=== PATIENT | male | born 1975 | race Caucasian/White ===

== ENCOUNTER 2024-12-03 11:47 | Emergency (ER) | payer BC, SELFPAY ==
[2024-12-03 11:54] VITALS: BP 111/56
[2024-12-03 11:55] VITALS: BP 111/56
[2024-12-03 12:00] VITALS: BP 111/56
--- NOTE | 2024-12-03 12:15 | ED.GENMED ---
History of Present Illness
General
Chief Complaint: Fainting Sensation
Source: patient and spouse
Time Seen by Provider: 12/03/24 12:05
History of Present Illness
History of Present Illness:
The patient is a 24-year-old male who presented with symptoms of dizziness and vertigo. He reports that he was feeling well upon waking up in the morning but experienced a sudden onset of lightheadedness and a spinning sensation after coming inside
from being outdoors. He described the sensation as 'the room was spinning.' The patient also experienced nausea, diaphoresis, and cold sweats. He attempted to manage the symptoms by drinking water and lying down but noted that lying on his back
aggravated the sensation, prompting him to turn onto his side in anticipation of vomiting.
The patient reported that head movement exacerbates the spinning sensation. He denies any previous medical problems but mentioned having a history of migraines for which he takes medication as needed. No history of medication use or allergies was
reported. He underwent nasal reconstruction surgery two years ago.
The patient denies any triggering activity or movement that might have precipitated the current episode of dizziness, although similar episodes have not been experienced before.
Phy Exam
Physical Exam
Physical Exam:
General: Awake, Alert, Oriented X3. Patient appears uncomfortable nausea dizziness
Vitals: unremarkable
Head: Atraumatic
Eyes: Pupils equal, EOMI, significant horizontal nystagmus with leftward gaze
Throat: Airway intact, no exudates
Neck: Trachea midline
Lungs: Clear and equal b/l
Heart: Regular rate, no murmurs
Abd: Soft, Nontender, No pulsatile mass
Neuro: Cranial nerves intact, muscle strength equal bilaterally
Skin: Warm, dry, no rash
Extremities: pulses equal b/l, no edema
Course
Orders/Labs/Results
Orders:
Orders
12/03/24 11:48
EKG [Electrocardiogram (*1)] Urgent
Reason for Study: Chest Pain
12/03/24 11:49
EKG- Treatment ONCE
12/03/24 12:08
Complete Blood Count/With Diff Urgent
Comprehensive Metabolic Panel Urgent
12/03/24 12:14
Ondansetron Injectable [Zofran] 4 mg IV NOW STA
PT Consult [Pt Eval And Treat] Urgent
Treatment: vertigo
Activity Level: As Tolerated
12/03/24 12:15
0.9% Sodium Chloride 500 ml [Nss] 500 ml IV BOLUS
12/03/24 12:26
diazePAM [Valium Injection] 5 mg IV NOW STA
Abnormal Lab Results
12/03/24
12:08
RBC 4.55 L 10^6/uL
(4.70-6.10)
MCH 31.2 H pg
(27.0-31.0)
Absolute Neuts (auto) 6.8 H 10^3/uL
(1.4-6.5)
Neutrophils % 78.9 H %
(42.2-75.2)
Lymphocytes % 13.8 L %
(20.5-51.1)
Chloride 109 H mmol/L
(98-107)
Glucose 121 H mg/dl
(70-99)
Total Protein 6.0 L g/dl
(6.3-8.2)
12/03/24 12:08
12/03/24 12:08
Vital Signs
Initial and Last Documented VS:
Initial Vital Signs
BP
111/56
12/03/24 11:54
Last Documented Vital Signs
Temp Pulse Resp BP Pulse Ox
97.9 F 53 17 110/53 100
12/03/24 11:55 12/03/24 13:15 12/03/24 13:15 12/03/24 13:00 12/03/24 13:15
MDM/Problems Addressed
Differential Diagnosis Includes:
Benign paroxysmal positional vertigo, labyrinthitis, dehydration
MDM/Problems Addressed:
Patient with sudden onset of vertigo. Nonfocal neurologic exam. He had improvement with IV fluids and Valium and Zofran. PT came to do a vestibular evaluation. At that time his symptoms had completely resolved and they were unable to reproduce
anything. Therefore I suspect this is likely BPPV. Stable for discharge home. Follow-up with PT as an outpatient.
*Pulse Oximetry
SaO2: 100
Oxygen Mode of Delivery: Room air
Patient hypoxic: no
*Critical Care Note
Total Time (30-74mins, 75-104mins- exclusive of procedures): Not Applicable
ED Attending Note
-
Portions of this chart may have been created with voice recognition software.� Occasional wrong word or��sound alike� substitutions may have occurred due to the inherent limitations of voice recognition software.
Discharge Plan
Departure
Patient Disposition: Home (Routine Discharge)
Date of Disposition: 12/03/24
Time of Disposition: 15:04
Patient with high blood pressure during this ER visit?: No
Condition: Good
Discharge Problem:
Benign paroxysmal positional vertigo
Instructions: Vertigo - ED discharge instructions
Prescriptions:
New
ondansetron 4 mg tablet,disintegrating
4 mg PO TID PRN (Reason: nausea and vomiting) Qty: 14 0RF
Referrals:
Yu Fischer DO [Family Provider]
Activity Restrictions/Additional Instructions:
I believe the symptoms that brought you to the emergency room are related to benign paroxysmal positional vertigo. I have sent a prescription for Zofran in case you have persistent nausea. If your symptoms return you can take meclizine which is a
medication that can be obtained [id number] in the pharmacy. You can take 25 mg every 8 hours as needed. I have given you a prescription for physical therapy to see the
Discharge Date and Time
Print Language: SWEDISH
[2024-12-03 12:16] LABS: Hematocrit 39.1 % (39.0-52.0); Hemoglobin 14.2 g/dL (13.0-18.0); Mean Corp Hgb Conc. 36.3 g/dL (33.0-37.0); Mean Corpuscular Volume 85.9 fL (80.0-94.0); Nucleated Red Blood Cells % 0 % (-); Platelet Count 173 10^3/uL (130-400); Red Cell Dist. Width 11.9 % (11.5-14.5)
[2024-12-03] MEDS: VALIUM INJECTION 5 MG IV (12:34)
[2024-12-03] MEDS: ZOFRAN 4 MG IV (12:34)
[2024-12-03] MEDS: NSS 500 IV (12:35)
[2024-12-03 12:41] LABS: ALT (SGPT) 21 U/L (0-50); AST (SGOT) 27 U/L (17-59); Albumin 4.0 g/dl (3.5-5.0); Alkaline Phosphatase 78 U/L (38-126); Blood Urea Nitrogen 20 mg/dl (9-20); Calcium 8.9 mg/dl (8.4-10.2); Carbon Dioxide 24 mmol/L (22-30); Chloride 109 mmol/L (98-107); Glucose 121 mg/dl (70-99); Potassium 4.3 mmol/L (3.5-5.1); Sodium 138 mmol/L (135-145); Total Protein 6.0 g/dl (6.3-8.2); eGFR > 60.00
[2024-12-03 13:00] VITALS: BP 110/53
[2024-12-03 14:03] VITALS: BP 123/80
[2024-12-03 14:21] VITALS: BP 123/80; PULSE 47; PULSE 52
== END 2024-12-03 15:20 | disposition home or self-care (01) ==
LOC: EMR 11:47
PROVIDERS: EMERGENCY PHYSICIAN Emergency Medicine; FAMILY PHYSICIAN Family Medicine
DX: H81.10 Benign paroxysmal vertigo, unspecified ear (principal); R11.0 Nausea
CPT/HCPCS: 96374; 96375; 96361; 99284; 80053; 85025; 93005